=== PATIENT | female | born 1965 | race Caucasian/White ===

== ENCOUNTER 2018-07-29 12:35 | Outpatient (CLI) | payer OTHER ==
[~2018-07-29 12:35] MED LIST: Iopamidol 370 76% 100 ML VIAL ONE
--- NOTE | 2018-07-29 15:09 | CT ---
CT NECK SOFT TISSUES: HISTORY: Palpable left jaw lesion. FINDINGS: Contrast-enhanced CT images of the soft tissue neck obtained. Images demonstrate the visualized sinuses to be well aerated. The parotid glands are unremarkable. No evidence of pharyngeal mucosal abnormality is seen. There is a left submandibular area of ill-def ined density measuring 1.9 x 1.5 cm with adjacent areas of platysmal thickening. This may represent a left submandibular enlarged lymph node with adjacent areas of soft tissue involving including possi ble cellulitis or extension of mass. Surgical consultation recommended. I cannot exclude the poss ibility of an inflamed or neoplastically involved lymph node with adjacent extension. The left subma ndibular gland is unremarkable. There is an area of lytic change involving the medial posterior cortex of the mandible. This is seen adjacent to the mandible. This is seen adjacent to the left 2nd mandibular molar roots. This may r epresent possible infectious etiology originating from the left 2nd mandibular molar extending medial ly and subsequently resulting in focal inflammatory process and possible inflammatory changes in the left submandibular lymph node. IMPRESSION: Findings suggesting inflamed left submandibular lymph node possibly from caries or infection involvin g the left 2nd mandibular molar (most posterior left mandibular molar). POS: TESSY
== END 2018-07-29 12:36 | disposition home or self-care (01) ==
LOC: BICCT 12:35
PROVIDERS: ATTEND Family Medicine
DX: R59.0 Localized enlarged lymph nodes (principal)
CPT/HCPCS: 70491; Q9967